=== PATIENT | male | born 1950 | race Caucasian/White ===

== ENCOUNTER 2017-01-26 10:50 | Day surgery (SDC) | payer MEDICARE, BC ==
[~2017-01-26 10:50] MED LIST: Lactated Ringers 1,000 ML IV SCH; Midazolam 1 MG/ML 2 ML SDV ONE; Propofol 200 MG/20 ML SDV ONE; fentaNYL 100 MCG/2 ML SDV ONE
--- NOTE | 2017-01-26 11:57 | PCM.PREANE ---
Preanesthetic Assessment - Anesthesia/Transfusion/Family Hx Anesthesia History: Prior Anesthesia Without Reaction Family History of Anesthesia Reaction: No Transfusion History: Prior Transfusion Without Reaction - Review of Systems General: No Symptoms Pulmonary: No Symptoms Cardiovascular: No Symptoms Gastrointestinal: No symptoms Neurological: No Symptoms Other: Reports: None - Physical Assessment NPO Status Date: 01/25/17 O2 Sat by Pulse Oximetry: 96 Respiratory Rate: 16 Vital Signs: Last Vital Signs Temp 36.6 C 01/26/17 11:40 Pulse 70 01/26/17 11:40 Resp 16 01/26/17 11:40 BP 136/94 H 01/26/17 11:40 Pulse Ox 96 01/26/17 11:40 Height: 1.75 m Weight: 96.615 kg ASA Class: 3 Mental Status: Alert & Oriented x3 Airway Class: Mallampati = 2 Dentition: Reports: Bridge ROM/Head Extension: Full Lungs: Clear to auscultation, Normal respiratory effort Cardiovascular: Regular Rate, Regular Rhythm - Allergies Allergies/Adverse Reactions: Allergies Allergy/AdvReac Type Severity Reaction Status Date / Time No Known Allergies Allergy Verified 01/23/17 12:18 - Blood Blood Available: No - Anesthesia Plan Pre-Op Medication Ordered: None Med Last Dose Date: 01/26/17 (metopralol and isosorbide) Med Last Dose Time: 07:30 - Acknowledgements Anesthesia Type Planned: MAC Pt an Appropriate Candidate for the Planned Anesthesia: Yes Alternatives and Risks of Anesthesia Discussed w Pt/Guardian: Yes Pt/Guardian Understands and Agrees with Anesthesia Plan: Yes Additional Comments: CABG about 10 years ago. still on metopralol and isoosrbide. > 4 mets activity without sx. PreAnesthesia Questionnaire HEENT History: Reports: Hard of hearing Other HEENT History: wears glasses, has upper permanent dental bridge, has bilateral hearing aides Cardiovascular History: Reports: CAD, High cholesterol, Hypertension Respiratory History: Reports: Sleep apnea Other Respiratory History: uses CPAP Gastrointestinal History: Reports: GI bleed Genitourinary History: Reports: BPH Other Genitourinary History: unable to urinate Musculoskeletal History: Reports: Fracture Other Musculoskeletal History: right clavicle Neurological History: Reports: Migraines Other Neuro History: twice a year Psychiatric History: Reports: None Endocrine/Metabolic History: Reports: Obesity/BMI 30+ Hematologic History: Reports: Blood transfusion(s) Immunologic History: Reports: None Oncologic (Cancer) History: Reports: None Dermatologic History: Reports: None - Past Surgical History Head Surgeries/Procedures: Reports: None Cardiovascular Surgical History: Reports: Coronary artery bypass, Coronary artery stent Other Cardiovascular Surgeries/Procedures: CABG and angioplasty with stents x2 Respiratory Surgical History: Reports: None GI Surgical History: Reports: Colonoscopy Male Surgical History: Reports: TURP-Transurethral resection of prostate Endocrine Surgical History: Reports: None Neurological Surgical History: Reports: None Musculoskeletal Surgical History: Reports: ORIF Other Musculoskeletal Surgeries/Procedures:: right clavicle Oncologic Surgical History: Reports: None Dermatological Surgical History: Reports: None - SUBSTANCE USE Smoking Status *Q: Former Smoker Tobacco Use Within Last Twelve Months: No Second Hand Smoke Exposure: No Recreational Drug Use History: No - HOME MEDS Home Medications: Home Meds Isosorbide Mononitrate [Imdur] 30 mg PO QAM 02/13/15 [History] Metoprolol Succinate 25 mg PO QAM 02/13/15 [History] Rosuvastatin [Crestor] 40 mg PO QAM 02/13/15 [History] Aspirin [Adult Low Dose Aspirin EC] 1 tab PO QAM 01/23/17 [History] - CURRENT (IN HOUSE) MEDS Current Meds: Current Medications Lactated Ringer's (Ringers, Lactated) 1,000 mls @ 125 mls/hr IV ASDIRECTED [facility] Last Admin: 01/26/17 11:42 Dose: 125 mls/hr Discontinued Medications Fentanyl (Sublimaze) Confirm Administered Dose 100 mcg .ROUTE .STK-MED ONE Stop: 01/26/17 10:06 Lidocaine HCl (Xylocaine-Mpf 1%) Confirm Administered Dose 5 ml .ROUTE .STK-MED ONE Stop: 01/26/17 10:06 Midazolam HCl (Versed 1 Mg/Ml) Confirm Administered Dose 2 mg .ROUTE .STK-MED ONE Stop: 01/26/17 10:06 Propofol (Diprivan 20 Ml) Confirm Administered Dose 200 mg .ROUTE .STK-MED ONE Stop: 01/26/17 10:06 Preanesthetic Assessment - ANESTHESIA/TRANSFUSION/FAMILY HX Family History of Anesthesia Reaction: No - PHYSICAL ASSESSMENT O2 Sat by Pulse Oximetry: 96 RR: 16 Vital Signs: Last Vital Signs Temp 36.6 C 01/26/17 11:40 Pulse 70 03/17/17 11:40 Resp 16 01/26/17 11:40 BP 136/94 H 01/26/17 11:40 Pulse Ox 96 01/26/17 11:40 Height: 1.75 m Weight: 96.615 kg - ALLERGIES Allergies/Adverse Reactions: Allergies Allergy/AdvReac Type Severity Reaction Status Date / Time No Known Allergies Allergy Verified 01/23/17 12:18
[2017-01-26] MEDS ORDERED: Lactated Ringers 1,000 ML IV SCH (12:30)
--- NOTE | 2017-01-26 12:32 | PCM.OPNOTE ---
- General Post-Op/Procedure Note Date of Surgery/Procedure: 01/26/17 Operative Procedure(s): Colonoscopy with cold rectal polypectomy Pre Op Diagnosis: Change in bowel function Post-Op Diagnosis: Rectal polyp. Sigmoid diverticulosis. Anesthesia Technique: MAC (ASA II) Primary Surgeon: Errol Hill Condition: Good Free Text/Narrative:: Dictation [id number]
--- NOTE | 2017-01-26 12:43 | PCM.POSTAN ---
POST ANESTHESIA ASSESSMENT - MENTAL STATUS Mental Status: alert, oriented - RESPIRATORY Respiratory Status: respiratory rate WNL, airway patent, O2 saturation stable - CARDIOVASCULAR CV Status: pulse rate WNL, blood pressure stable - GASTROINTESTINAL GI Status: no symptoms - POST OP HYDRATION Hydration Status: adequate & stable - OBSERVATIONS Free Text/Narrative:: no anesthesia problems
[2017-01-26 13:30] VITALS: BP 148/80
--- NOTE | 2017-01-26 13:33 | PCM48HPAN ---
Post Anesthesia Note - EVALUATION WITHIN 48HRS OF ANESTHETIC Vital Signs in Normal Range: Yes Patient Participated in Evaluation: Yes Respiratory Function Stable: Yes Airway Patent: Yes Cardiovascular Function Stable: Yes Hydration Status Stable: Yes Nausea and Vomiting Control Satisfactory: Yes Mental Status Recovered: Yes
--- NOTE | 2017-01-26 18:42 | OR ---
SURGEON: Errol Hill M.D. DATE OF PROCEDURE: 01/26/2017 OPERATION PERFORMED: Colonoscopy with colorectal polypectomy. ANESTHESIA: MAC. ASA CLASSIFICATION: III. PREOPERATIVE DIAGNOSIS: Change in bowel habits. POSTOPERATIVE DIAGNOSES: 1. Small rectal polyp. 2. Sigmoid diverticulosis. DESCRIPTION OF PROCEDURE: The patient was taken to the endoscopy room, positioned on the endoscopy table in the left lateral decubitus position. Time-out was called for appropriate identification of patient and procedure. Monitored anesthesia care was provided. The colonoscope was inserted into the rectum and advanced with minimal difficulty to the cecum. Cecum was identified by internal landmarks and external pressure. The colonoscope was retroflexed in the cecum to visualize the ascending colon from below, then straightened and slowly withdrawn. The cecum, ascending colon, hepatic flexure, transverse colon, splenic flexure, and descending colon showed no tumors, polyps, diverticula, angiodysplasia, or evidence of inflammatory bowel disease. Numerous small diverticula were noted in the sigmoid colon. No stricture, spasm, or bleeding was noted. The colonoscope was withdrawn to the rectum where one small polyp was encountered. This was removed with the cold biopsy forceps. The colonoscope was withdrawn to the distal rectum and retroflexed to visualize the anal orifice from above. No tumors or polyps were seen distally and there were no acute hemorrhoidal changes. The colonoscope was straightened, the rectum aspirated, and the colonoscope removed. The patient tolerated the procedure well and was taken to recovery room in stable condition. NORRIS / RIC /[id number]
== END 2017-01-26 13:20 | disposition home or self-care (01) ==
LOC: MW.SDS 10:50
PROVIDERS: ATTEND Surgery
PROC: 0DBP8ZZ Excision of Rectum, Via Natural or Artificial Opening Endoscopic (ICD-10-PCS; principal; 2017-01-26)
DX: D12.8 Benign neoplasm of rectum (principal); K57.30 Diverticulosis of large intestine without perforation or abscess without bleeding; N40.0 Benign prostatic hyperplasia without lower urinary tract symptoms; I25.10 Atherosclerotic heart disease of native coronary artery without angina pectoris; I10 Essential (primary) hypertension; G47.30 Sleep apnea, unspecified; E78.00 Pure hypercholesterolemia, unspecified; E66.9 Obesity, unspecified; Z87.891 Personal history of nicotine dependence; Z79.82 Long term (current) use of aspirin; Z79.899 Other long term (current) drug therapy; Z98.52 Vasectomy status; Z95.1 Presence of aortocoronary bypass graft; Z95.5 Presence of coronary angioplasty implant and graft; Z90.79 Acquired absence of other genital organ(s); Z98.890 Other specified postprocedural states; Z68.31 Body mass index [BMI] 31.0-31.9, adult
CPT/HCPCS: 45380; J2250; J3010; J7120; 88305; J2704

== ENCOUNTER → 2017-02-06 | Outpatient (CLI) | payer MEDICARE, BC | LOC: MW.CHGS 08:00 | PROVIDERS: ATTEND Surgery | DX: D12.6 Benign neoplasm of colon, unspecified (principal); R15.9 Full incontinence of feces; K57.30 Diverticulosis of large intestine without perforation or abscess without bleeding | CPT/HCPCS: G0463 ==

== ENCOUNTER 2019-03-07 09:24 | Day surgery (SDC) | payer MEDICARE, BC ==
[~2019-03-07 09:24] MED LIST changes: +Lidocaine 2% 5 ML SDV ONE; -Midazolam 1 MG/ML 2 ML SDV ONE
--- NOTE | 2019-03-07 10:07 | PCM.PREANE ---
Preanesthetic Assessment - Anesthesia/Transfusion/Family Hx Anesthesia History: Prior Anesthesia Without Reaction Family History of Anesthesia Reaction: No Transfusion History: Prior Transfusion Without Reaction - Review of Systems General: No Symptoms Pulmonary: No Symptoms Cardiovascular: No Symptoms Gastrointestinal: Difficulty Swallowing Neurological: No Symptoms Other: Reports: None - Physical Assessment NPO Status Date: 03/06/19 Height: 5 ft 9 in Weight: 122.47 kg ASA Class: 3 Mental Status: Alert & Oriented x3 Airway Class: Mallampati = 2 Dentition: Reports: Normal Dentition ROM/Head Extension: Full Lungs: Clear to Auscultation, Normal Respiratory Effort Cardiovascular: Regular Rate, Regular Rhythm - Allergies Allergies/Adverse Reactions: Allergies Allergy/AdvReac Type Severity Reaction Status Date / Time No Known Allergies Allergy Verified 03/04/19 13:38 - Blood Blood Available: No - Anesthesia Plan Pre-Op Medication Ordered: None - Acknowledgements Anesthesia Type Planned: General Anesthesia Pt an Appropriate Candidate for the Planned Anesthesia: Yes Alternatives and Risks of Anesthesia Discussed w Pt/Guardian: Yes Pt/Guardian Understands and Agrees with Anesthesia Plan: Yes Additional Comments: PMH: cad-s/p CABG 10 yr ago, htn- on meds x 1 week, RUMA- uses CPAP PLAN: TIVA PreAnesthesia Questionnaire - Past Health History Medical/Surgical History: Denies Medical/Surgical History HEENT History: Reports: Hard of Hearing Other HEENT History: wears glasses, has upper permanent dental bridge, has bilateral hearing aides Cardiovascular History: Reports: CAD, High Cholesterol, Hypertension Respiratory History: Reports: Sleep Apnea Other Respiratory History: uses CPAP Gastrointestinal History: Reports: GI Bleed Genitourinary History: Reports: BPH Other Genitourinary History: unable to urinate Musculoskeletal History: Reports: Fracture Other Musculoskeletal History: right clavicle Neurological History: Reports: Migraines Other Neuro History: twice a year Psychiatric History: Reports: None Endocrine/Metabolic History: Reports: Obesity/BMI 30+ Other Endocrine/Metabolic History: prediabetic Hematologic History: Reports: Blood Transfusion(s) Immunologic History: Reports: None Oncologic (Cancer) History: Reports: None Dermatologic History: Reports: None - Past Surgical History Male Surgical History: Reports: TURP-Transurethral Resection of Prostate - SUBSTANCE USE Smoking Status *Q: Former Smoker Recreational Drug Use History: No - HOME MEDS Home Medications: Home Meds Isosorbide Mononitrate [Imdur] 30 mg PO QAM 02/13/15 [History] Rosuvastatin [Crestor] 40 mg PO QAM 02/13/15 [History] Aspirin [Adult Low Dose Aspirin EC] 1 tab PO QAM 01/23/17 [History] amLODIPine [Norvasc] 5 mg PO DAILY 03/04/19 [History] - CURRENT (IN HOUSE) MEDS Current Meds: Current Medications Lactated Ringer's (Ringers, Lactated) 1,000 mls @ 125 mls/hr IV ASDIRECTED [facility] Last Admin: 03/07/19 09:55 Dose: 125 mls/hr Discontinued Medications Fentanyl (Sublimaze) Confirm Administered Dose 100 mcg .ROUTE .STK-MED ONE Stop: 03/07/19 08:06 Lidocaine (Xylocaine-Mpf 2%) Confirm Administered Dose 5 ml .ROUTE .STK-MED ONE Stop: 03/07/19 08:06 Propofol (Diprivan 20 Ml) Confirm Administered Dose 400 mg .ROUTE .STK-MED ONE Stop: 03/07/19 08:07
--- NOTE | 2019-03-07 11:10 | PCM.OPNOTE ---
- General Post-Op/Procedure Note Date of Surgery/Procedure: 03/07/19 Operative Procedure(s): Esophagogastroduodenoscopy with gastric biopsy Pre Op Diagnosis: Progressive dysphasia Post-Op Diagnosis: Mild gastritis and duodenitis. Hiatal hernia. Anesthesia Technique: MAC (ASA III) Primary Surgeon: Errol Hill Condition: Good Free Text/Narrative:: DICTATION [id number] CPT CODE 31647
[2019-03-07] MEDS ORDERED: Lactated Ringers 1,000 ML IV SCH (11:15)
--- NOTE | 2019-03-07 11:28 | OR ---
SURGEON: Errol Hill M.D. DATE OF PROCEDURE: 03/07/2019 OPERATION PERFORMED: Esophagogastroduodenoscopy with gastric biopsy. ANESTHESIA: MAC. ASA CLASSIFICATION: III. PREOPERATIVE DIAGNOSIS: Progressive dysphagia. POSTOPERATIVE DIAGNOSES: 1. Gastritis. 2. Small hiatal hernia. DESCRIPTION OF PROCEDURE: The patient was taken to the endoscopy room and positioned on the endoscopy table in the supine position. Time-out was called for appropriate identification of the patient and procedure. Monitored anesthesia care was provided. The bite block was placed between the patient's teeth. The gastroscope was inserted through the bite block into the oropharynx and advanced without difficulty through the esophagus and stomach, into the duodenum where examination was now carried out in a retrograde fashion. Duodenum does show some [id number] inflammatory changes. No acute ulcerations were noted. The scope was withdrawn into the stomach, which also shows a [id number] chronic gastritis. Antral biopsies were obtained to look for the presence of Helicobacter pylori. The gastroscope was retroflexed to visualize the proximal stomach. No tumors or polyps were seen. No significant hiatal hernia was noted from below. The gastroscope was then straightened and slowly withdrawn. The GE junction was well defined. There was a small hiatal hernia noted. I did not see any evidence of esophagitis. No esophageal erosions were noted and no strictures were seen. The esophagus demonstrates good contractility. No mid or proximal esophageal lesions were identified. I was not able to visualize the vocal cords as the scope was withdrawn. The patient tolerated the procedure well and was taken to recovery room in satisfactory condition. NORRIS / RIC /[id number]
--- NOTE | 2019-03-07 11:31 | PCM.POSTAN ---
POST ANESTHESIA ASSESSMENT - MENTAL STATUS Mental Status: Alert, Oriented - RESPIRATORY Respiratory Status: Respiratory Rate WNL, Airway Patent, O2 Saturation Stable - CARDIOVASCULAR CV Status: Pulse Rate WNL, Blood Pressure Stable - GASTROINTESTINAL GI Status: No Symptoms - POST OP HYDRATION Hydration Status: Adequate & Stable
--- NOTE | 2019-03-07 11:32 | PCM48HPAN ---
Post Anesthesia Note - EVALUATION WITHIN 48HRS OF ANESTHETIC Vital Signs in Normal Range: Yes Patient Participated in Evaluation: Yes Respiratory Function Stable: Yes Airway Patent: Yes Cardiovascular Function Stable: Yes Hydration Status Stable: Yes Pain Control Satisfactory: Yes Nausea and Vomiting Control Satisfactory: Yes Mental Status Recovered: Yes Resp Rate: 17
[2019-03-07 11:50] VITALS: BP 110/81
== END 2019-03-07 11:51 | disposition home or self-care (01) ==
LOC: MW.SDS 09:24
PROVIDERS: ATTEND Surgery
DX: K29.50 Unspecified chronic gastritis without bleeding (principal); K44.9 Diaphragmatic hernia without obstruction or gangrene; K29.80 Duodenitis without bleeding; I25.10 Atherosclerotic heart disease of native coronary artery without angina pectoris; I10 Essential (primary) hypertension; E78.00 Pure hypercholesterolemia, unspecified; G47.30 Sleep apnea, unspecified; R73.03 Prediabetes; Z99.89 Dependence on other enabling machines and devices; Z95.1 Presence of aortocoronary bypass graft; Z87.891 Personal history of nicotine dependence; Z79.82 Long term (current) use of aspirin; Z79.899 Other long term (current) drug therapy
CPT/HCPCS: 43239; 82962; J2001; J2704; J3010; J7120

== ENCOUNTER 2021-01-28 06:19 | Day surgery (SDC) | payer MEDICARE, BC ==
[~2021-01-28 06:19] MED LIST changes: -Lidocaine 2% 5 ML SDV ONE; -Propofol 200 MG/20 ML SDV ONE; -fentaNYL 100 MCG/2 ML SDV ONE
[2021-01-28] MEDS ORDERED: fentaNYL 100 MCG/2 ML SDV ONE (06:25)
[2021-01-28] MEDS ORDERED: Propofol 200 MG/20 ML SDV ONE (06:25)
[2021-01-28] MEDS ORDERED: Midazolam 1 MG/ML 2 ML SDV ONE (06:25)
[2021-01-28] MEDS ORDERED: Lidocaine 2% 5 ML SDV ONE (06:26)
--- NOTE | 2021-01-28 06:58 | PCM.PREANE ---
Preanesthetic Assessment - Anesthesia/Transfusion/Family Hx Anesthesia History: Prior Anesthesia Without Reaction Family History of Anesthesia Reaction: No Transfusion History: Prior Transfusion Without Reaction Intubation History: Unknown - Review of Systems General: No Symptoms Pulmonary: No Symptoms Cardiovascular: No Symptoms Gastrointestinal: Difficulty Swallowing Neurological: No Symptoms Other: Reports: None - Physical Assessment Vital Signs: Last Vital Signs Temp 36.3 C 01/28/21 06:32 Pulse 59 L 01/28/21 06:32 Resp 16 01/28/21 06:32 BP 109/73 01/28/21 06:32 Pulse Ox 94 L 01/28/21 06:32 Height: 5 ft 9 in Weight: 94.801 kg ASA Class: 3 Mental Status: Alert & Oriented x3 Airway Class: Mallampati = 3 Dentition: Reports: Bridge (permanent upper front - 4 teeth) Thyro-Mental Finger Breadths: 3 Mouth Opening Finger Breadths: 3 ROM/Head Extension: Limited/Partial Lungs: Clear to Auscultation, Normal Respiratory Effort Cardiovascular: Regular Rate, Regular Rhythm - Allergies Allergies/Adverse Reactions: Allergies Allergy/AdvReac Type Severity Reaction Status Date / Time No Known Allergies Allergy Verified 01/28/21 06:36 - Blood Blood Available: No - Anesthesia Plan Pre-Op Medication Ordered: None - Acknowledgements Anesthesia Type Planned: MAC Pt an Appropriate Candidate for the Planned Anesthesia: Yes Alternatives and Risks of Anesthesia Discussed w Pt/Guardian: Yes Pt/Guardian Understands and Agrees with Anesthesia Plan: Yes PreAnesthesia Questionnaire - Past Health History Medical/Surgical History: Denies Medical/Surgical History HEENT History: Reports: Hard of Hearing, Other (See Below) Other HEENT History: wears glasses, has bilateral hearing aides, has upper permanent dental bridge Cardiovascular History: Reports: CAD, High Cholesterol, Hypertension, Other (See Below) Other Cardiovascular History: possible Carotid stenosis- 40% left, asymptomatic Respiratory History: Reports: Sleep Apnea Other Respiratory History: uses CPAP every night Gastrointestinal History: Reports: Colon Polyp, Gastritis, Other (See Below) (dysphagia at present) Genitourinary History: Reports: BPH Other Genitourinary History: unable to urinate Musculoskeletal History: Reports: None Other Musculoskeletal History: right clavicle Neurological History: Reports: Migraines Other Neuro History: twice a year Psychiatric History: Reports: None Endocrine/Metabolic History: Reports: Obesity/BMI 30+ (BMI 30.9) Other Endocrine/Metabolic History: prediabetic Hematologic History: Reports: Blood Transfusion(s) Immunologic History: Reports: None Oncologic (Cancer) History: Reports: None Dermatologic History: Reports: None - Past Surgical History Head Surgeries/Procedures: Reports: None HEENT Surgical History: Reports: None Cardiovascular Surgical History: Reports: Coronary Artery Bypass Other Cardiovascular Surgeries/Procedures: CABG- 3 vessels abbout a decade ago, doing well Respiratory Surgical History: Reports: None GI Surgical History: Reports: Colonoscopy, EGD (2 years ago) Female Surgical History: Reports: Other (See Below) (prostate surgery) Male Surgical History: Reports: TURP-Transurethral Resection of Prostate, Vasectomy Endocrine Surgical History: Reports: None Neurological Surgical History: Reports: None Musculoskeletal Surgical History: Reports: Other (See Below) Other Musculoskeletal Surgeries/Procedures:: Radical Revision of right Clavicle Oncologic Surgical History: Reports: None Dermatological Surgical History: Reports: None - SUBSTANCE USE Tobacco Use Status *Q: Former Tobacco User Tobacco Use Within Last Twelve Months: No Recreational Drug Use History: No - HOME MEDS Home Medications: Home Meds Isosorbide Mononitrate [Imdur] 30 mg PO QAM 02/13/15 [History] Rosuvastatin [Crestor] 40 mg PO QAM 02/13/15 [History] Aspirin [Adult Low Dose Aspirin EC] 81 mg PO QAM 01/23/17 [History] amLODIPine [Norvasc] 5 mg PO QAM 03/04/19 [History] Ezetimibe 10 mg PO QAM 01/25/21 [History] Nitroglycerin [Nitrostat] 0.4 mg SL ASDIRECTED [facility] MDD 3 doses 01/25/21 [History] - CURRENT (IN HOUSE) MEDS Current Meds: Current Medications Lactated Ringer's (Ringers, Lactated) 1,000 mls @ 125 mls/hr IV ASDIRECTED [facility] Last Admin: 01/28/21 06:38 Dose: 125 mls/hr Documented by: Discontinued Medications Fentanyl (Fentanyl 100 Mcg/2 Ml Sdv) Confirm Administered Dose 100 mcg .ROUTE .STK-MED ONE Stop: 01/28/21 06:26 Lidocaine (Lidocaine 2% 5 Ml Sdv) Confirm Administered Dose 5 ml .ROUTE .STK-MED ONE Stop: 01/28/21 06:27 Midazolam HCl (Midazolam 1 Mg/Ml 2 Ml Sdv) Confirm Administered Dose 2 mg .ROUTE .STK-MED ONE Stop: 01/28/21 06:26 Propofol (Propofol 200 Mg/20 Ml Sdv) Confirm Administered Dose 200 mg .ROUTE .STK-MED ONE Stop: 01/28/21 06:26
--- NOTE | 2021-01-28 07:52 | PCM.OPNOTE ---
- General Post-Op/Procedure Note Date of Surgery/Procedure: 01/28/21 Operative Procedure(s): Esophagogastroduodenoscopy with gastric and esophageal biopsies Pre Op Diagnosis: Progressive dysphasia Post-Op Diagnosis: Moderate acute and chronic gastritis. Distal esophagitis. Anesthesia Technique: MAC (ASA III) Primary Surgeon: Errol Hill Condition: Good Free Text/Narrative:: DICTATION 216278 CPT CODE 30116
[2021-01-28 07:58] VITALS: PULSE 60
[2021-01-28] MEDS ORDERED: Lactated Ringers 1,000 ML IV SCH (08:00)
[2021-01-28 08:10] VITALS: BP 138/70
--- NOTE | 2021-01-28 08:17 | PCM.POSTAN ---
POST ANESTHESIA ASSESSMENT - MENTAL STATUS Mental Status: Alert, Oriented - VITAL SIGNS Vital Signs: Last Vital Signs Temp 36.2 C 01/28/21 08:03 Pulse 60 01/28/21 08:03 Resp 14 01/28/21 08:03 BP 138/70 01/28/21 08:03 Pulse Ox 94 L 01/28/21 08:03 - RESPIRATORY Respiratory Status: Respiratory Rate WNL, Airway Patent, O2 Saturation Stable - CARDIOVASCULAR CV Status: Pulse Rate WNL, Blood Pressure Stable - GASTROINTESTINAL GI Status: No Symptoms - PAIN Pain Score: 0 - POST OP HYDRATION Hydration Status: Adequate & Stable - OBSERVATIONS Free Text/Narrative:: No anesthesia problems
--- NOTE | 2021-01-28 08:17 | PCM48HPAN ---
Post Anesthesia Note - EVALUATION WITHIN 48HRS OF ANESTHETIC Vital Signs in Normal Range: Yes Patient Participated in Evaluation: Yes Respiratory Function Stable: Yes Airway Patent: Yes Cardiovascular Function Stable: Yes Hydration Status Stable: Yes Pain Control Satisfactory: Yes Nausea and Vomiting Control Satisfactory: Yes Mental Status Recovered: Yes Vital Signs: Last Vital Signs Temp 36.2 C 01/28/21 08:03 Pulse 60 01/28/21 08:03 Resp 14 01/28/21 08:03 BP 138/70 01/28/21 08:03 Pulse Ox 94 L 01/28/21 08:03 - COMMENTS/OBSERVATIONS Free Text/Narrative:: No anesthesia problems
--- NOTE | 2021-01-28 10:15 | OR ---
SURGEON: Errol Hill M.D. DATE OF PROCEDURE: 01/28/2021 OPERATION PERFORMED: Esophagogastroduodenoscopy with gastric and esophageal biopsies. PRIMARY SURGEON: Errol Hill M.D. ANESTHESIA: MAC. ASA CLASSIFICATION: III. PREOPERATIVE DIAGNOSIS: Persistent dysphagia. POSTOPERATIVE DIAGNOSES: 1. Moderate acute on chronic gastritis. 2. Distal esophagitis. DESCRIPTION OF PROCEDURE: The patient was taken to the endoscopy room and positioned on the endoscopy table in the supine position. Time-out was called for appropriate identification of the patient and procedure. Monitored anesthesia care was provided. Bite block was placed between the patient's teeth. The gastroscope was inserted through the bite block and advanced without difficulty through the esophagus and stomach into the duodenum where examination was now carried out in a retrograde fashion. Duodenum showed no acute inflammatory changes or ulcerations. The gastroscope was then withdrawn to the stomach, which did show moderate acute on chronic gastritis. Antral biopsies were obtained to look for the presence of Helicobacter pylori. There were few flecks of blood present but no acute ulceration and no bleeding lesions were identified. The gastroscope was retroflexed to visualize the proximal stomach. No lesions were noted proximally. The gastroscope was then straightened and slowly withdrawn. The GE junction did show some [id number] inflammatory changes and separate biopsies of this area were obtained. The esophagus itself demonstrated good contractility. No mid or proximal lesions were identified. The vocal cords were briefly visualized as the scope was withdrawn. No vocal cord lesions were identified. The gastroscope was then removed with the patient having tolerated the procedure well. He was taken to recovery room in stable condition. NORRIS / RIC /[id number]
== END 2021-01-28 08:32 | disposition home or self-care (01) ==
LOC: MW.SDS 06:19
PROVIDERS: ATTEND Surgery
DX: K29.00 Acute gastritis without bleeding (principal); K29.50 Unspecified chronic gastritis without bleeding; K20.90 Esophagitis, unspecified without bleeding; K22.8 Other specified diseases of esophagus; R73.03 Prediabetes; I25.10 Atherosclerotic heart disease of native coronary artery without angina pectoris; G47.30 Sleep apnea, unspecified; I10 Essential (primary) hypertension; E78.00 Pure hypercholesterolemia, unspecified; E66.9 Obesity, unspecified; Z68.30 Body mass index [BMI] 30.0-30.9, adult; Z79.82 Long term (current) use of aspirin; Z79.899 Other long term (current) drug therapy; Z87.891 Personal history of nicotine dependence; Z86.010 Personal history of colon polyps; Z95.1 Presence of aortocoronary bypass graft; Z98.890 Other specified postprocedural states
CPT/HCPCS: 43239; 88305; 88312; J2250; J2704; J3010; J7120